=== PATIENT | female | born 1970 | race Caucasian/White ===

== ENCOUNTER 2016-05-04 10:49 | Outpatient (CLI) | payer BC ==
--- NOTE | 2016-05-04 12:36 | DIAGNOSTIC IMAGING REPORT ---
PROCEDURE: XR BARIUM SWALLOW INDICATION: Dysphagia. Sore throat. TECHNIQUE: Double contrast study. Fluoroscopy time, 2.5 minutes; and of the 1149.83 mGy. 60 fluoroscopic images (including cine fluoroscopy of the esophagus). COMPARISON: Comparison is made to radiographs of the neck from [facility] on 04/07/2016. FINDINGS: Pharyngoesophagus is normal. No constricting or polypoid lesions. Moderate gastroesophageal reflux. Esophagus is otherwise normal. IMPRESSION: 1. Normal pharyngoesophagus. 2. Moderate gastroesophageal reflux. 3. Otherwise negative esophagram. 4. Findings discussed with the patient.
--- NOTE | 2016-05-04 12:36 | DIAGNOSTIC IMAGING REPORT ---
PROCEDURE: XR BARIUM SWALLOW INDICATION: Dysphagia. Sore throat. TECHNIQUE: Double contrast study. Fluoroscopy time, 2.5 minutes; and of the 1149.83 mGy. 60 fluoroscopic images (including cine fluoroscopy of the esophagus). COMPARISON: Comparison is made to radiographs of the neck from [facility] on 04/07/2016. FINDINGS: Pharyngoesophagus is normal. No constricting or polypoid lesions. Moderate gastroesophageal reflux. Esophagus is otherwise normal. IMPRESSION: 1. Normal pharyngoesophagus. 2. Moderate gastroesophageal reflux. 3. Otherwise negative esophagram. 4. Findings discussed with the patient.
== END 2016-05-04 23:00 ==
LOC: XR SRH 10:49
DX: K21.9 Gastro-esophageal reflux disease without esophagitis (principal)